=== PATIENT | female | born 1940 | race Caucasian/White ===

== ENCOUNTER 2017-11-03 15:42 | Emergency (ER) | payer MEDICARE ==
--- NOTE | 2017-11-03 16:49 | UC ---
Laceration HPI - HPI Summary HPI Summary: fell down a step on to shale near the [place] has 2 2.5 skin tears distally 2 v shaped laceration more proximally and scattered small abrasions - History Of Current Complaint Chief Complaint: UCLowerExtremity Stated Complaint: LEG INJURY Time Seen by Provider: 11/03/17 16:45 Hx Obtained From: Patient Laceration Location: Generalized - right garcia Mechanism Of Injury: Blunt Trauma Onset/Duration: Sudden Onset, Lasting Hours Severity: Moderate Pain Intensity: 0 Aggravating Factors: Nothing - Allergies/Home Medications Allergies/Adverse Reactions: Allergies Allergy/AdvReac Type Severity Reaction Status Date / Time No Known Allergies Allergy Verified 11/03/17 16:23 Home Medications: Home Medications Ibuprofen 400 mg PO Q6HR PRN 11/03/17 [History Confirmed 11/03/17] PMH/Surg Hx/FS Hx/Imm Hx Previously Healthy: Yes - Surgical History Surgical History: None - Family History Known Family History: Positive: None - Social History Occupation: Retired Lives: With Family Alcohol Use: None Substance Use Type: None Smoking Status (MU): Never Smoked Tobacco Review of Systems Constitutional: Negative Skin: Other - abrasions and skin tears right garcia Eyes: Negative ENT: Negative Respiratory: Negative Cardiovascular: Negative Gastrointestinal: Negative Genitourinary: Negative Motor: Negative Neurovascular: Negative Musculoskeletal: Negative Neurological: Negative Psychological: Negative Is Patient Immunocompromised?: No All Other Systems Reviewed And Are Negative: Yes Physical Exam Triage Information Reviewed: Yes Appearance: Well-Appearing, No Pain Distress, Well-Nourished Vital Signs: Initial Vital Signs Temp 97.9 F 11/03/17 16:15 Pulse 72 11/03/17 16:15 Resp 18 11/03/17 16:15 BP 125/65 11/03/17 16:15 Pulse Ox 99 11/03/17 16:15 Vital Signs Reviewed: Yes Eye Exam: Normal Eyes: Positive: Conjunctiva Clear ENT Exam: Normal ENT: Positive: Normal ENT inspection, Hearing grossly normal, Pharynx normal. Negative: Trismus, Muffled voice, Hoarse voice Dental Exam: Normal Neck exam: Normal Neck: Positive: Supple, Nontender Respiratory Exam: Normal Respiratory: Positive: Chest non-tender, No respiratory distress, No accessory muscle use Cardiovascular Exam: Normal Cardiovascular: Positive: RRR, No Murmur, Pulses Normal, Brisk Capillary Refill Musculoskeletal Exam: Normal Musculoskeletal: Positive: Strength Intact, ROM Intact, No Edema Neurological Exam: Normal Neurological: Positive: Alert, Muscle Tone Normal Psychological Exam: Normal Skin Exam: Other Skin: Positive: Other - large amont of dirt and shale remained in wounds after cleaned by rn Re-Evaluation - Re-Evaluation First Eval Change: Improved - >60 mins spent by may self cleaning pieces of shale rock out from outder skin tear flaps and wound beds---patient tolerated well with topical lidocaine on wound--steri strips apllied then bulky dressing-- Laceration Course/Dx - Course/Dx Course Of Treatment: start on keflex (tetanus is up update) steri strip and acute wound care education provided, recheck at urgent cqre follow up with pcp as needed - Differential Dx - Laceration/Wound Provider Diagnoses: skin tears and foreign body removal right garcia Discharge - Sign-Out/Discharge Documenting (check all that apply): Patient Departure - Discharge Plan Condition: Stable Disposition: HOME Prescriptions: Cephalexin CAP* [Keflex CAP*] 500 mg PO QID #20 cap Patient Education Materials: Acetaminophen (By mouth), Diphtheria/Acellular Pertussis/Tetanus Booster Vaccine (By injection), Skin Tear (ED) Referrals: No Primary Care Phys,NOPCP [Primary Care Provider] - Additional Instructions: follow with pcp or return as needed - Billing Disposition and Condition Condition: STABLE Disposition: Home
[2017-11-03] MEDS ORDERED: Lidocaine 4% TOPICAL* 50 ML TOP.SOLN TOPICAL ONE (16:53)
[2017-11-03] MEDS ORDERED: Tetan/Diph/Pertus SYR(Tdap)* 0.5 ML SYR(BOOSTRIX) use SYR IM ONE (16:53)
[2017-11-03] MEDS ORDERED: Benzoin Compound STICK ONE (18:07)
[2017-11-03] MEDS ORDERED: Cephalexin CAP* 500 MG PO ONE ×2 (18:16)
[2017-11-03] MEDS ORDERED: Benzoin Compound STICK TOPICAL ONE (18:20)
[2017-11-03 19:01] VITALS: BP 136/67
== END 2017-11-03 18:45 | disposition home or self-care (01) ==
LOC: UCEAST 15:42
DX: S81.821A Laceration with foreign body, right lower leg, initial encounter (principal); S80.811A Abrasion, right lower leg, initial encounter; W10.9XXA Fall (on) (from) unspecified stairs and steps, initial encounter; Y93.89 Activity, other specified; Y92.9 Unspecified place or not applicable; Z23 Encounter for immunization
CPT/HCPCS: 90715; 99203; A9270-GY; G0463

== ENCOUNTER 2017-11-12 15:07 | Emergency (ER) | payer MEDICARE ==
[2017-11-12 15:27] VITALS: BP 135/58
--- NOTE | 2017-11-12 15:42 | UC ---
Minor Trauma HPI - HPI Summary HPI Summary: This is kristie Lowe documenting for attending John Timmons MD. This patient is a 77 year old F presenting to [facility] accompanied by family status post fall that occurred on 11/07/2017. Family reports that the [place], and was wandering around for approximately an hour. The patient rates the pain 1/10 in severity. Symptoms aggravated by nothing. Symptoms alleviated by nothing. Patient reports abrasions on bilateral extremities lower extremities (some due to a fall that occurred on 11/03/2017). The family reports they are concerned for ticks. Pt reports she has been on antibiotics since 2017, after being seen at [facility] for a fall. Medications reviewed. Allergies reviewed. - History of Current Complaint Chief Complaint: UCLowerExtremity Stated Complaint: LEG COMPLAINT Time Seen by Provider: 11/12/17 15:31 Hx Obtained From: Patient, Family/Forging Machine Hand ?: No Onset/Duration: Sudden Onset, Lasting Days, Still Present Onset Of Pain: Post Accident Severity Initially: Mild Severity Currently: Mild Pain Intensity: 1 Pain Scale Used: 0-10 Numeric Mechanism Of Injury: Fall From A Standing Position Aggravating Factor(s): Nothing Alleviating Factor(s): Nothing - Allergies/Home Medications Allergies/Adverse Reactions: Allergies Allergy/AdvReac Type Severity Reaction Status Date / Time No Known Allergies Allergy Verified 11/12/17 15:27 Home Medications: Home Medications Mirtazapine TAB* [Remeron TAB*] 15 mg PO BEDTIME 11/12/17 [History Confirmed ] Sertraline HCl [Zoloft] 100 mg PO 11/12/17 [History] PMH/Surg Hx/FS Hx/Imm Hx Previously Healthy: Yes Endocrine History: Other Other Endocrine History: Negative diabetes Cardiovascular History: Other Other Cardiovascular History: Negative HTN - Surgical History Surgical History: None - Family History Known Family History: Positive: Cardiac Disease - Social History Occupation: Retired Lives: Alone Alcohol Use: None Substance Use Type: None Smoking Status (MU): Never Smoked Tobacco Review of Systems Constitutional: Other - Negative fever Skin: Other - Positive abrasions on bilateral lower extremities Is Patient Immunocompromised?: Yes All Other Systems Reviewed And Are Negative: Yes Physical Exam - Summary Physical Exam Summary: General: well-appearing, no pain distress Skin: warm, color reflects adequate perfusion, dry. On both shins healing skin evulsions with granulation tissue and some erythema surrounding. No drainage. Head: normal Eyes: EOMI, RAMO ENT: normal Neck: supple, nontender Respiratory: CTA, breath sounds present Cardiovascular: RRR Abdomen: soft, nontender Bowel: present Musculoskeletal: normal, strength/ROM intact Neurological: sensory/motor intact, A&O x3 Psychological: affect/mood appropriate Triage Information Reviewed: Yes Vital Signs: Initial Vital Signs Temp 96.2 F 11/12/17 15:17 Pulse 77 11/12/17 15:17 Resp 18 11/12/17 15:17 BP 135/58 11/12/17 15:17 Pulse Ox 96 11/12/17 15:17 Vital Signs Reviewed: Yes Minor Trauma Course/Dx - Differential Dx/Diagnosis Provider Diagnoses: SKIN AVULSIONS B/L LOWER LEGS Discharge - Sign-Out/Discharge Documenting (check all that apply): Patient Departure - Discharge Plan Condition: Stable Disposition: HOME Prescriptions: Cephalexin CAP* [Keflex CAP*] 500 mg PO TID #21 cap Patient Education Materials: Skin Avulsion (ED) Referrals: [facility] [Outside] Additional Instructions: FOLLOW UP WITH YOUR DOCTOR. GET RECHECKED FOR ANY WORSENING OF YOUR CONDITION OR QUESTIONS OR CONCERNS. - Billing Disposition and Condition Condition: STABLE Disposition: Home
== END 2017-11-12 16:10 | disposition home or self-care (01) ==
LOC: UCEAST 15:07
DX: S81.802A Unspecified open wound, left lower leg, initial encounter (principal); S81.801A Unspecified open wound, right lower leg, initial encounter; W19.XXXA Unspecified fall, initial encounter; Y93.01 Activity, walking, marching and hiking; Y92.821 Forest as the place of occurrence of the external cause
CPT/HCPCS: 99212; G0463